=== PATIENT | male | born 1940 | race Caucasian/White ===

== ENCOUNTER 2024-09-09 09:24 | Inpatient (IN) ==
[2024-09-09] MEDS: DEXAMETHASONE 10 MG/ML VIAL PO ONE (10:07)
[2024-09-09] MEDS: HYDROmorphone 1 MG/ML SYRINGE IM ONE (10:19)
[2024-09-09] MEDS: KETOROLAC 30 MG/ML VIAL IM ONE (10:19)
[2024-09-09] MEDS: DEXAMETHASONE 4 MG TABLET PO ONE (10:19)
[2024-09-09] MEDS: fentaNYL 100 MCG/2 ML VIAL IV ONE (15:58)
[2024-09-09 16:07] LABS: Basophils # (Auto) 0.01 K/mcL (0.00-0.30); Basophils % (Auto) 0.1 % (0.0-2.0); Eosinophils # (Auto) 0 K/mcL (0.00-0.70); Eosinophils % (Auto) 0 % (0.0-7.0); Hematocrit 41.5 % (40.1-51.0); Hemoglobin 13.6 g/dL (13.7-17.5); Lymphocytes # (Auto) 0.56 K/mcL (1.50-4.80); Lymphocytes % (Auto) 5.9 % (15.5-49.0); Mean Cell Volume 95.4 fL (80.0-100.0); Mean Corpuscular HGB Conc 32.8 g/dL (31.0-36.0); Mean Platelet Volume 10.1 fL (8.8-12.5); Monocytes # (Auto) 0.12 K/mcL (0.10-0.90); Monocytes % (Auto) 1.3 % (1.0-12.0); Neutrophils % (Auto) 92.6 % (38.0-78.0); Platelet Count 283 K/mcL (140-440); RBC 4.35 M/mcL (4.63-6.08); WBC 9.6 K/mcL (4.5-11.0)
[2024-09-09 16:28] LABS: Blood Urea Nitrogen 35 mg/dL (8-23); Carbon Dioxide 23 mmol/L (22-30); Chloride 102 mmol/L (96-108); Glomerular Filtration Rate 60; Glucose 116 mg/dL (70-105); Potassium 4.4 mmol/L (3.3-5.1); Sodium 140 mmol/L (133-145)
[2024-09-09] MEDS: 0.9 % SODIUM CHLORIDE 500 ML IV ONE (16:45)
[2024-09-09] MEDS ORDERED: NYSTATIN CRM 1 DOSE TUBE TOPICAL PRN (16:56)
[2024-09-09] MEDS: LORazepam 2 MG/ML VIAL IV ONE (17:02)
[2024-09-09 18:42] LABS: ALT/SGPT 8 U/L (<40); AST/SGOT 20 U/L (<40); Albumin 3.5 gm/dL (3.2-5.2); Albumin/Globulin Ratio 1.2 (1.0-2.3); Alkaline Phosphatase 80 U/L (39-117); Bilirubin,Total 0.7 mg/dL (0.1-1.0); Blood Urea Nitrogen 35 mg/dL (8-23); Calcium 8.5 mg/dL (8.6-10.4); Carbon Dioxide 20 mmol/L (22-30); Chloride 104 mmol/L (96-108); Glomerular Filtration Rate 68; Glucose 124 mg/dL (70-105); Potassium 4.4 mmol/L (3.3-5.1); Sodium 139 mmol/L (133-145)
[2024-09-09] MEDS ORDERED: ONDANSETRON 4 MG/2 ML VIAL IV PRN (20:24)
[2024-09-09] MEDS: 0.9 % SODIUM CHLORIDE 10 ML SYRINGE IV SCH (22:00)
[2024-09-10] MEDS: SENNOSIDES 1 TABLET PO SCH (00:45)
[2024-09-10] MEDS: DOCUSATE SODIUM 100 MG CAPSULE PO SCH (00:45)
[2024-09-10] MEDS: oxyCODONE IR 5 MG TABLET PO PRN (01:12)
[2024-09-10] MEDS: CYCLOBENZAPRINE 10 MG TABLET PO PRN ×2 (03:39→08:55)
[2024-09-10 05:51] LABS: Basophils # (Auto) 0 K/mcL (0.00-0.30); Basophils % (Auto) 0 % (0.0-2.0); Eosinophils # (Auto) 0 K/mcL (0.00-0.70); Eosinophils % (Auto) 0 % (0.0-7.0); Hematocrit 40.3 % (40.1-51.0); Lymphocytes # (Auto) 1.13 K/mcL (1.50-4.80); Lymphocytes % (Auto) 9.5 % (15.5-49.0); Mean Cell Volume 96.9 fL (80.0-100.0); Mean Corpuscular HGB Conc 32.3 g/dL (31.0-36.0); Monocytes # (Auto) 0.54 K/mcL (0.10-0.90); Monocytes % (Auto) 4.5 % (1.0-12.0); Neutrophils % (Auto) 85.8 % (38.0-78.0); Platelet Count 286 K/mcL (140-440); RBC 4.16 M/mcL (4.63-6.08); WBC 11.9 K/mcL (4.5-11.0)
[2024-09-10 06:15] LABS: ALT/SGPT 10 U/L (<40); AST/SGOT 17 U/L (<40); Albumin 3.6 gm/dL (3.2-5.2); Albumin/Globulin Ratio 1.2 (1.0-2.3); Alkaline Phosphatase 82 U/L (39-117); Bilirubin,Total 0.6 mg/dL (0.1-1.0); Blood Urea Nitrogen 36 mg/dL (8-23); Calcium 8.7 mg/dL (8.6-10.4); Carbon Dioxide 21 mmol/L (22-30); Chloride 103 mmol/L (96-108); Globulin 3.1 gm/dL (2.2-3.7); Glomerular Filtration Rate 68; Glucose 174 mg/dL (70-105); Potassium 4.6 mmol/L (3.3-5.1); Sodium 139 mmol/L (133-145)
[2024-09-10] MEDS: LEVOTHYROXINE 75 MCG TABLET PO SCH (08:09)
[2024-09-10] MEDS: CYANOCOBALAMIN (VITAMIN B-12) 500 MCG TABLET PO SCH (08:55)
[2024-09-10] MEDS: APIXABAN 5 MG TABLET PO SCH (08:55)
[2024-09-10] MEDS: DILTIAZEM 180 MG CAP.XL.24H PO SCH (08:55)
[2024-09-10] MEDS: CLOPIDOGREL 75 MG TABLET PO SCH (08:55)
[2024-09-10] MEDS: INSULIN GLARGINE, HUMAN 1 UNIT/0.01 ML SQ SCH (08:56)
[2024-09-10] MEDS: POLYETHYLENE GLYCOL 3350 17 GM PACKET PO SCH (08:57)
[2024-09-10] MEDS: Empagliflozin [Jardiance] 25 mg tablet PO SCH (08:57)
[2024-09-10] MEDS ORDERED: DEXTROSE 31 GM ORAL.SUSP PO PRN (10:37)
[2024-09-10] MEDS ORDERED: DEXTROSE 50% 50 ML VIAL IV PRN (10:37)
[2024-09-10] MEDS: morphine 4 MG/ML VIAL IV PRN (11:24)
[2024-09-10] MEDS: INSULIN LISPRO 1 UNIT/0.01 ML UNIT SQ SCH (12:39)
[2024-09-10] MEDS: ACETAMINOPHEN 1,000 MG/100 ML BAG IV SCH (13:15)
[2024-09-10] MEDS: ATORVASTATIN 40 MG TABLET PO SCH (20:58)
[2024-09-11 06:55] LABS: Basophils # (Auto) 0.01 K/mcL (0.00-0.30); Basophils % (Auto) 0.1 % (0.0-2.0); Eosinophils # (Auto) 0.02 K/mcL (0.00-0.70); Eosinophils % (Auto) 0.2 % (0.0-7.0); Hematocrit 37.7 % (40.1-51.0); Hemoglobin 12.2 g/dL (13.7-17.5); Mean Cell Volume 96.4 fL (80.0-100.0); Mean Corpuscular HGB Conc 32.4 g/dL (31.0-36.0); Mean Platelet Volume 10.2 fL (8.8-12.5); Monocytes # (Auto) 0.69 K/mcL (0.10-0.90); Monocytes % (Auto) 7.8 % (1.0-12.0); Neutrophils % (Auto) 74.8 % (38.0-78.0); Platelet Count 265 K/mcL (140-440); RBC 3.91 M/mcL (4.63-6.08); Red Cell Distribution Width 13.2 % (11.5-14.5); WBC 8.8 K/mcL (4.5-11.0)
[2024-09-11] MEDS: ACETAMINOPHEN 500 MG TABLET PO PRN (07:33)
[2024-09-11 07:39] LABS: ALT/SGPT 10 U/L (<40); AST/SGOT 15 U/L (<40); Albumin 3.4 gm/dL (3.2-5.2); Albumin/Globulin Ratio 1.3 (1.0-2.3); Alkaline Phosphatase 73 U/L (39-117); Bilirubin,Total 0.5 mg/dL (0.1-1.0); Blood Urea Nitrogen 35 mg/dL (8-23); Calcium 8.4 mg/dL (8.6-10.4); Carbon Dioxide 24 mmol/L (22-30); Chloride 103 mmol/L (96-108); Globulin 2.6 gm/dL (2.2-3.7); Glomerular Filtration Rate 77; Glucose 146 mg/dL (70-105); Potassium 4.6 mmol/L (3.3-5.1); Sodium 137 mmol/L (133-145)
[2024-09-11] MEDS ORDERED: MAGNESIUM CITRATE 300 ML ORAL.SOL PO PRN (11:52)
[2024-09-11] MEDS: POLYETHYLENE GLYCOL 3350 17 GM PACKET PO ONE (12:09)
[2024-09-11] MEDS: oxyCODONE IR 5 MG TABLET PO SCH ×2 (16:00→23:43)
[2024-09-11] MEDS: CYCLOBENZAPRINE 10 MG TABLET PO SCH (16:00)
[2024-09-11] MEDS: ACETAMINOPHEN 500 MG TABLET PO SCH ×2 (16:00→23:43)
[2024-09-12 06:55] LABS: Basophils # (Auto) 0.03 K/mcL (0.00-0.30); Basophils % (Auto) 0.5 % (0.0-2.0); Eosinophils # (Auto) 0.18 K/mcL (0.00-0.70); Hematocrit 39.1 % (40.1-51.0); Hemoglobin 12.6 g/dL (13.7-17.5); Lymphocytes # (Auto) 1.73 K/mcL (1.50-4.80); Lymphocytes % (Auto) 28.4 % (15.5-49.0); Mean Cell Volume 97.5 fL (80.0-100.0); Mean Corpuscular HGB Conc 32.2 g/dL (31.0-36.0); Mean Platelet Volume 10.1 fL (8.8-12.5); Monocytes # (Auto) 0.64 K/mcL (0.10-0.90); Monocytes % (Auto) 10.5 % (1.0-12.0); Neutrophils % (Auto) 57.1 % (38.0-78.0); Platelet Count 257 K/mcL (140-440); RBC 4.01 M/mcL (4.63-6.08); WBC 6.1 K/mcL (4.5-11.0)
[2024-09-12 07:25] LABS: ALT/SGPT 10 U/L (<40); AST/SGOT 14 U/L (<40); Albumin 3.3 gm/dL (3.2-5.2); Albumin/Globulin Ratio 1.3 (1.0-2.3); Alkaline Phosphatase 71 U/L (39-117); Bilirubin,Total 0.5 mg/dL (0.1-1.0); Blood Urea Nitrogen 25 mg/dL (8-23); Calcium 8.3 mg/dL (8.6-10.4); Carbon Dioxide 25 mmol/L (22-30); Chloride 103 mmol/L (96-108); Globulin 2.6 gm/dL (2.2-3.7); Glomerular Filtration Rate 77; Glucose 111 mg/dL (70-105); Potassium 4.4 mmol/L (3.3-5.1); Sodium 138 mmol/L (133-145)
== END 2024-09-12 11:25 | DRG 552 ==
LOC: ED 09:24 → MEDSUR 19:30
PROVIDERS: ADMIT Student in an Organized Health Care Education/Training Program; ATTEND Student in an Organized Health Care Education/Training Program